=== PATIENT | female | born 1970 | race Caucasian/White ===

== ENCOUNTER 2020-11-21 07:52 | Emergency (ER) | payer OTHER ==
[2020-11-21] MEDS ORDERED: ROBAXIN750 MG PO (10:23)
[2020-11-21] MEDS ORDERED: NAPROXEN500 MG PO (10:23)
[2020-11-21] MEDS ORDERED: NORCO 5-325 TA1 EACH PO (10:23)
== END 2020-11-21 10:40 | disposition home or self-care (01) ==
LOC: FER 07:52
DX: M47.816 Spondylosis without myelopathy or radiculopathy, lumbar region (principal); M48.56XA Collapsed vertebra, not elsewhere classified, lumbar region, initial encounter for fracture
CPT/HCPCS: 72131